=== PATIENT | male | born 1980 | race Caucasian/White ===

== ENCOUNTER 2023-03-28 07:56 | Emergency (ER) | payer BC ==
[~2023-03-28] VITALS: Ht 185.4 cm; Wt 99.2 kg
[2023-03-28 08:04] VITALS: BP 139/82
[2023-03-28 08:30] VITALS: BP 139/97
[2023-03-28 09:00] VITALS: BP 118/81
[2023-03-28 09:30] VITALS: BP 125/78
[2023-03-28] MEDS ORDERED: NAPROXEN500 MG PO (09:37)
[2023-03-28] MEDS ORDERED: DECADRON4 MG PO (09:37)
[2023-03-28] MEDS ORDERED: FLEXERIL5 M1 PO (09:37)
[2023-03-28 09:43] VITALS: BP 125/78
== END 2023-03-28 09:55 | disposition home or self-care (01) | DRG 556 ==
LOC: ED 07:56
DX: M25.512 Pain in left shoulder (principal)

== ENCOUNTER 2023-09-04 12:03 | Emergency (ER) | payer BC ==
[~2023-09-04] VITALS: Ht 185.4 cm; Wt 99.7 kg
[~2023-09-04 12:03] MED LIST: DECADRON4 MG PO; FLEXERIL5 M1 PO; NAPROXEN500 MG PO
[2023-09-04 12:14] VITALS: BP 118/90
[2023-09-04 12:30] VITALS: BP 129/98
[2023-09-04 12:31] LABS: BASO% 0.5 % (0-3); EOS% 1.7 % (0-8); HEMATOCRIT 45.3 % (39.0-50.0); HEMOGLOBIN 15.2 g/dl (14.0-18.0); IMMATURE GRANULOCYTES 0.2 % (0.0-5.0); LYMPH% 42.2 % (15-41); MEAN CELL VOLUME 92.4 fL CALC (80.0-100.0); MEAN CORPUSCULAR HGB CONC 33.6 g/dL CAL (32.0-36.0); MONO% 7.7 % (2-13); NEUT# 3.15 thou/uL (1.82-7.42); NEUT% 47.7 % (42-76); RED BLOOD COUNT 4.9 mill/uL (4.70-6.10)
[2023-09-04 12:48] LABS: ALBUMIN 4.3 g/dL (3.2-5.0); BILIRUBIN, TOTAL 0.3 mg/dL (0.2-1.3); CREATININE 0.8 mg/dL (0.7-1.3); POTASSIUM 4.4 mmol/l (3.5-5.1)
[2023-09-04 13:38] LABS: URINE BILIRUBIN - DIPSTICK Negative (NEGATIVE); URINE BLOOD DIPSTICK Trace-lysed (NEGATIVE); URINE COLOR Yellow; URINE GLUCOSE - DIPSTICK Negative (NEGATIVE); URINE KETONE Negative (NEGATIVE); URINE LEUK ESTERASE Negative (NEGATIVE); URINE NITRITE - DIPSTICK Negative (Negative); URINE PH 5.5 (4.5-8.0); URINE PROTEIN - DIPSTICK Negative (NEG-TRACE); URINE SPECIFIC GRAVITY 1.025; URINE UROBILINOGEN - DIPSTICK 0.2 E.U./dL (0.2)
[2023-09-04] MEDS ORDERED: KETOROLAC TROMETHAMINE 30 MG/ML SDV IM ONE (14:20)
[2023-09-04] MEDS ORDERED: CYCLOBENZAPRINE10 MG PO (14:22)
[2023-09-04] MEDS ORDERED: ZPAK PO (14:22)
[2023-09-04] MEDS ORDERED: ZOFRAN4 MG/TAB PO (14:22)
[2023-09-04] MEDS ORDERED: NAPROXEN500 MG PO (14:22)
[2023-09-04] MEDS ORDERED: ORPHENADRINE CITRATE 30 MG/ML AMP IM ONE (14:25)
[2023-09-04] MEDS ORDERED: MEDDOSEPAK PO (14:28)
[2023-09-04 14:51] VITALS: BP 116/79
[2023-09-04 14:55] VITALS: BP 116/79
== END 2023-09-04 15:02 | disposition home or self-care (01) | DRG 204 ==
LOC: ED 12:03
PROVIDERS: Family Medicine
DX: R05.9 Cough, unspecified (principal); S39.011A Strain of muscle, fascia and tendon of abdomen, initial encounter; X58.XXXA Exposure to other specified factors, initial encounter; Z20.822 Contact with and (suspected) exposure to COVID-19